=== PATIENT | female | born 1945 | race Caucasian/White ===

== ENCOUNTER → 2017-05-13 | Outpatient (CLI) | payer OTHER | LOC: RAD 01:51 | DX: Z12.31 Encounter for screening mammogram for malignant neoplasm of breast (principal) ==

== ENCOUNTER → 2018-05-15 | Outpatient (CLI) | payer OTHER | LOC: RAD 01:13 | DX: Z12.31 Encounter for screening mammogram for malignant neoplasm of breast (principal) ==

== ENCOUNTER → 2019-05-25 | Outpatient (CLI) | payer OTHER | LOC: RAD 03:36 | DX: Z12.31 Encounter for screening mammogram for malignant neoplasm of breast (principal) ==

== ENCOUNTER → 2020-05-26 | Outpatient (CLI) | payer OTHER | LOC: BC 10:08 | DX: Z12.31 Encounter for screening mammogram for malignant neoplasm of breast (principal) ==

== ENCOUNTER → 2021-05-29 | Outpatient (CLI) | payer OTHER | LOC: BC 10:40 | DX: Z12.31 Encounter for screening mammogram for malignant neoplasm of breast (principal) ==